=== PATIENT | female | born 2000 | race Caucasian/White ===

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

== ENCOUNTER 2019-02-22 22:05 | Emergency (ER) | payer MEDICAID, OTHER ==
[~2019-02-22] VITALS: Wt 51.7 kg
[~2019-02-22 22:05] MED LIST changes: -CEPH-443 PO; +PREN1TAB79 PO
[2019-02-22 22:10] VITALS: PULSE 109; RESP 20
[2019-02-22] MEDS ORDERED: IBUPROFEN 600 MG TAB PO ONE (23:00)
--- NOTE | 2019-02-22 23:15 | ERD ---
ER Documentation Chief Complaint Chief Complaint fever/body aches x 1 day HPI 18-year-old female presents complaint of fever and body aches for the past day. Not taking any treatments. Denies any cough, nuchal rigidity, photophobia vomiting, abdominal pain, dysuria, hematuria, diarrhea, recent travel. Her daughter is also sick. Denies allergies. ROS All systems reviewed and are negative except as per history of present illness. Medications Home Meds Active Scripts Acetaminophen* (Tylophen*) 500 Mg Capsule, 2 CAP PO Q8H PRN for PAIN AND OR ELEVATED TEMP, #20 CAP Prov:SONIDO FOUNTAIN 02/23/19 Reported Medications Vit W-Ca,Fe,FA(<1 mg) ( Vitamins) 1 Each Tablet, 1 EACH PO, TAB 12/31/17 Allergies Allergies: Coded Allergies: No Known Allergy (Unverified , 08/24/17) PMhx/Soc History of Surgery: No Anesthesia Reaction: No Hx Neurological Disorder: No Hx Respiratory Disorders: No Hx Cardiac Disorders: No Hx Psychiatric Problems: No Hx Miscellaneous Medical Probl: No Hx Alcohol Use: No Hx Substance Use: No Hx Tobacco Use: No Smoking Status: Never smoker FmHx Family History: No diabetes, No coronary disease, No other Physical Exam Vitals Vital Signs Date Temp Pulse Resp B/P (MAP) Pulse Ox O2 O2 Flow FiO2 Time Delivery Rate 02/22/19 100.8 22:49 02/22/19 100.8 109 20 22:10 Physical Exam Const: No acute distress Head: Atraumatic Eyes: Normal Conjunctiva ENT: Normal External Ears, Nose and Mouth. Tonsils are nonedematous erythematous bilaterally with no exudates. Uvula is midline. There are no peritonsillar masses noted. TMs are pearly huston without erythema or edema bilaterally. Neck: Full range of motion. No meningismus. Resp: Clear to auscultation bilaterally Cardio: Regular rate and rhythm, no murmurs Abd: Soft, non tender, non distended. Normal bowel sounds. No McBurney's tenderness. Negative Dent's. Skin: No petechiae or rashes Back: No midline or flank tenderness Ext: No cyanosis, or edema Neur: Awake and alert Psych: Normal Mood and Affect Results 24 hrs Laboratory Tests Test 02/22/19 22:53 02/22/19 22:54 Bedside Urine pH (LAB) 6.5 Bedside Urine Protein (LAB) Trace Bedside Urine Glucose (UA) Negative Bedside Urine Ketones (LAB) Negative Bedside Urine Blood Negative Bedside Urine Nitrite (LAB) Negative Bedside Urine Leukocyte Esterase (L Trace POC Beta HCG, Qualitative NEGATIVE Current Medications Medications Dose Sig/Thu Start Time Status Last (Trade) Ordered Route PRN Stop Time Admin Dose Reason Admin Ibuprofen 600 mg ONCE ONCE 02/22/19 DC 02/22/19 (Motrin) PO 23:00 22:49 02/22/19 23:01 Procedures/MDM MDM: Patient influenza and urine dip are negative. Patient most likely has viral syndrome. I low suspicion for meningitis, pyelonephritis, bacteremia, appendicitis, cholecystitis, or any other emergent condition. Patient given Tylenol. Patient discharged with strict ER precautions. Patient advised to follow up with PMD. All questions answered at discharge. Departure Diagnosis: Primary Impression: Viral syndrome Condition: Stable ALESSANDROLAEX MONTIELEL February 22, 2019 23:15
[2019-02-23] MEDS ORDERED: ACET500C5 PO (00:05)
== END 2019-02-23 00:46 | disposition home or self-care (01) ==
LOC: FTE 22:05
DX: B34.9 Viral infection, unspecified (principal)
CPT/HCPCS: 81003; 81025; 87400; Z7502; Z7610; 99283

== ENCOUNTER 2019-07-27 19:12 | Emergency (ER) | payer MEDICAID ==
[~2019-07-27] VITALS: Ht 154.9 cm; Wt 48.6 kg
[~2019-07-27 19:12] MED LIST changes: +ACET500C5 PO; +IBUP-1542 PO
[2019-07-27 19:38] VITALS: BP 118/73; PULSE 91; RESP 18; Ht 154.9 cm; Wt 48.6 kg
== END 2019-07-27 21:23 | disposition home or self-care (01) ==
LOC: FTE 19:12
DX: M54.5 Low back pain (principal)
CPT/HCPCS: 72100; 84703; Z7502